=== PATIENT | male | born 1990 ===

== ENCOUNTER 2016-11-16 12:12 | Day surgery (SDC) | payer OTHER ==
[~2016-11-16] VITALS: Ht 175.3 cm; Wt 83.1 kg
[2016-11-16 12:21] VITALS: Ht 175.3 cm; Wt 83.1 kg
[2016-11-16] MEDS ORDERED: ANXIETY MED (12:30)
[2016-11-16 12:48] VITALS: BP 139/65; PULSE 69; RESP 22
[2016-11-16] MEDS ORDERED: PROPOFOL 40 ML ONE (13:10)
[2016-11-16] MEDS ORDERED: LIDOCAINE 2% (SDV) 5 ML INJ ONE (13:10)
--- NOTE | 2016-11-16 13:24 | OPPN ---
Date/Time of Note Date/Time of Note DATE: 11/16/16 TIME: 13:22 Operative Report Preoperative Diagnosis Abdominal pain nausea and vomiting Postoperative Diagnosis Reflux esophagitis with erosions Gastritis with erosions Operation/Procedure Performed Esophagogastroduodenoscopy and biopsy Provider: NATHANIEL SANDERS MD Anesthesia Type: MAC Estimated blood loss: none Transfusion Required: no Specimens Gastric mucosal biopsy Grafts/Implants: none Complications: no NATHANIEL SANDERS MD Nov 16, 2016 13:24
[2016-11-16 13:55] VITALS: BP 129/67; PULSE 58; RESP 18
--- NOTE | 2016-11-16 23:40 | GILP ---
DATE OF PROCEDURE: 11/16/2016 PREOPERATIVE DIAGNOSES: Abdominal pain, nausea or vomiting. POSTOPERATIVE DIAGNOSES: 1. Reflux esophagitis with erosions. 2. Gastritis with erosions. 3. Gastric mucosal biopsies were taken for Helicobacter pylori test. PROCEDURE PERFORMED: Esophagogastroduodenoscopy and biopsy. SURGEON: Delfin Garrett MD. INDICATIONS FOR PROCEDURE: Mr. Jese Moses is a 26-year-old male patient who had upper abdominal pain, nausea or vomiting not responding to therapy. The patient was scheduled for endoscopic examination for further evaluation. The procedure and possible complications were well explained to the patient. He understood and consented to the procedure. DESCRIPTION OF PROCEDURE: Under the influence of anesthesia the gastroscope was carefully introduced into the esophagus. Under direct vision it was advanced to the stomach, into the pylorus, into the duodenal bulb and descending duodenum. Findings esophagus, the patient had reflux esophagitis with erosions. Stomach, he had gastritis with erosions. Gastric mucosal biopsies were taken for Helicobacter pylori test. Duodenum was normal. He tolerated the procedure very well and there was no complication from the procedure. At the end of procedure he was awake with stable vital signs and he was discharged home in the care of his family. IMPRESSION: Please see postoperative diagnoses. PLAN: 1. Omeprazole 40 mg p.o. q.am. 2. Await Helicobacter pylori test report. Dictated By: MD SHYANNE Mancera/marine/walter /Document#: [id number] CC: Delfin Garrett MD;*EndCC*
== END 2016-11-16 15:01 | disposition home or self-care (01) ==
LOC: GIL 12:12
PROVIDERS: ATTEND Internal Medicine Gastroenterology
DX: K21.0 Gastro-esophageal reflux disease with esophagitis (principal); K29.60 Other gastritis without bleeding; E78.5 Hyperlipidemia, unspecified
CPT/HCPCS: 43239; 87081; Z7610